=== PATIENT | female | born 1930 | race Caucasian/White ===

== ENCOUNTER 2017-09-27 02:45 | Emergency (ER) | payer MEDICARE ==
[2014-12-31 07:15] VITALS: BMI 25.8
[~2017-09-27 02:45] MED LIST: ACETAMINOPHEN500 M1 PO; ALDACTONE25 MG PO; BAYER CHEWABLE81 MG PO; BOUDREAUXS113 GM TP; CALCIUM 600+D T1 TA1 PO; COUMADIN2 MG PO; COUMADIN2.5 MG PO; DEXTROSE 50%/WA50 ML IV; DIOVAN160 MG PO; GLUCAGON1 MG/KIT IM; GLUCAGON1 MG/KIT SQ; GLUCOPHAGE1000 MG PO; HUMALOG 30100 UNITS/ SC; INSTA-GLUCOSE31 GM PO; JANUVIA100 MG PO; K-DUR20 MEQ PO; LANOXIN125 MCG PO; LASIX20 MG PO; LASIX40 MG PO; LEVAQUIN250 MG PO; LEVOTHROID100 MCG PO; MAGNESIUM OXID250 M1 PO; METOPROLOL TAR100 MG PO; MILK OF MAGNESI30 ML GT; NORCO 5/325 TAB1 TA1 PO; ONDANSETRON4 MG/2 M3 IV; OYSCO 500+D TAB1 TAB PO; PHENAZOPYRIDIN100 MG PO; PRAVACHOL40 MG PO; PROTONIX I40 MG/VIAL IV; PROTONIX40 MG PO; PROVENTIL/2.5 MG/3 M NEB; RESTORIL15 MG PO; TRICOR145 MG PO; TRILIPIX45 MG PO
== END 2017-09-27 04:08 | disposition home or self-care (01) ==
LOC: D.ER 02:45
DX: R04.0 Epistaxis (principal); I10 Essential (primary) hypertension; E11.9 Type 2 diabetes mellitus without complications

== ENCOUNTER 2019-04-19 07:20 | Inpatient (IN) | payer MEDICARE ==
[2019-04-19] VITALS (17 sets, daily range): BP systolic 116–153; BP diastolic 42–59; BMI 24.9
[2019-04-19 07:54] LABS: BASOPHILS 0.2 % (0-2); EOSINOPHILS 2.5 % (0-7); HEMATOCRIT 24.8 % (36.0-48.0); HEMOGLOBIN 7.9 g/dL (12-16); IMMATURE GRANULOCYTES 0.2 % (0-5); LYMPHOCYTES 8.7 % (15-50); MCH 29.8 pg (26.0-34.0); MCHC 31.9 g/dL (31.0-37.0); MCV 93.6 fL (80.0-100.0); MEAN PLATELET VOLUME 10.2 fL (7.4-10.4); MONOCYTES 6.8 % (2-11); NEUTROPHILS 81.6 % (40-80); RBC 2.65 10x6/uL (4.00-5.40); RDW 17.4 % (11.5-14.5); WBC 5.3 10x3/uL (4.8-10.8)
[2019-04-19] MEDS ORDERED: MICARDIS20 MG PO (07:56)
[2019-04-19 07:57] LABS: PLATELET COUNT 116 10x3/uL (130-400)
[2019-04-19] MEDS ORDERED: FERROUS SULFAT325 MG PO (07:57)
[2019-04-19 08:09] LABS: APTT 36.9 SECONDS (22.8-39.4); INR 2.4 (0.85-1.17); PROTIME 25.5 SECONDS (11.6-15.0)
[2019-04-19 08:16] LABS: ALBUMIN 3.8 g/dL (3.4-5.0); ALKALINE PHOSPHATASE 22 U/L (46-116); ALT (SGPT) 30 U/L (10-68); BILIRUBIN - TOTAL 0.61 mg/dL (0.2-1.3); CALC OSMOLALITY 286 mosm/kg (275-300); CALCIUM 8.4 mg/dL (8.5-10.1); CHLORIDE - SERUM 100 mmol/L (98-107); CREATININE - SERUM 1.4 mg/dL (0.6-1.3); POTASSIUM - SERUM 3.8 mmol/L (3.5-5.1); PROTEIN - SERUM 6.6 g/dL (6.4-8.2); SODIUM 138 mmol/L (136-145); UREA NITROGEN 30 mg/dL (7-18); eGFR NON AFRICAN AMERICAN 38 mL/min (90-120)
[2019-04-19 08:17] LABS: GLUCOSE 197 mg/dL (74-106)
[2019-04-19 08:28] LABS: CKMB 1.9 U/L (0.0-3.6); CREATINE KINASE 147 UL (21-215); PRO BNP 679 pg/mL (0-450); TROPONIN-I 0.041 ng/mL (0.000-0.060)
--- NOTE | 2019-04-19 14:34 | NUR ---
I have reviewed this patient and I concur with the Shift Assessment completed by the Licensed Practical Nurse today this shift.
--- NOTE | 2019-04-19 19:00 | NUR ---
ALERT AND ORIENTED. PATIENT WAS RECEIVING BLOOD BUT NS FLOWING AND FLUSHING LINE. DENIES PAIN OR DISCOMFORT. PT HAS PRODUCTIVE COUGH AND LUNGS PRESENT WITH EXPIRATORY WHEEZES AND CRACKLES AT BASES. SON AT BEDSIDE.
[2019-04-20] VITALS: BP 131/58
[2019-04-20 04:00] VITALS: BP 151/46
[2019-04-20 06:50] LABS: BASOPHILS 0.1 % (0-2); EOSINOPHILS 0 % (0-7); IMMATURE GRANULOCYTES 0.4 % (0-5); LYMPHOCYTES 4.5 % (15-50); MCH 30.8 pg (26.0-34.0); MCHC 32.8 g/dL (31.0-37.0); MCV 93.8 fL (80.0-100.0); MEAN PLATELET VOLUME 11.2 fL (7.4-10.4); MONOCYTES 6.3 % (2-11); NEUTROPHILS 88.7 % (40-80); PLATELET COUNT 111 10x3/uL (130-400)
[2019-04-20 06:59] LABS: HEMATOCRIT 30.5 % (36.0-48.0); RBC 3.25 10x6/uL (4.00-5.40); WBC 8.3 10x3/uL (4.8-10.8)
[2019-04-20 07:12] LABS: INR 2.26 (0.85-1.17); PROTIME 24.3 SECONDS (11.6-15.0)
[2019-04-20 08:32] LABS: ALBUMIN 3.8 g/dL (3.4-5.0); ANION GAP 14.6 mmol/L (8-16); BILIRUBIN - TOTAL 1.06 mg/dL (0.2-1.3); CALCIUM 8.4 mg/dL (8.5-10.1); CARBON DIOXIDE 26.9 mmol/L (21.0-32.0); CREATININE - SERUM 1.3 mg/dL (0.6-1.3); POTASSIUM - SERUM 3.5 mmol/L (3.5-5.1); PROTEIN - SERUM 6.6 g/dL (6.4-8.2)
[2019-04-20 09:25] VITALS: BP 126/73
--- NOTE | 2019-04-20 09:38 | NUR ---
PT IS HAVING COUGHING FITS AND IS COUGHING UP BLOOD PER PT AND SON. DID SEE RED SPUTUM IN TISSUE ON PT BEDSIDE. HAD PAGED DR VAZQUEZ EARLIER AND PT SON INSIST ON PAGING DR WEBER. WILL WAIT A BIT BEFORE PAGING AGAIN DUE TO SUNDAY AND POSSIBLY IN SERVICES
[2019-04-20 13:00] VITALS: BP 150/57
[2019-04-20 18:20] VITALS: BP 167/67
[2019-04-20 20:00] VITALS: BP 144/51
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
[2019-04-21] VITALS: BP 115/51
[2019-04-21 04:00] VITALS: BP 147/47
--- NOTE | 2019-04-21 04:50 | NUR ---
I have reviewed this patient and I concur with the Shift Assessment completed by the Licensed Practical Nurse today this shift.
[2019-04-21 07:05] LABS: BASOPHILS 0.1 % (0-2); EOSINOPHILS 0.4 % (0-7); HEMATOCRIT 29.3 % (36.0-48.0); HEMOGLOBIN 9.5 g/dL (12-16); IMMATURE GRANULOCYTES 0.3 % (0-5); LYMPHOCYTES 8.2 % (15-50); MCH 30.5 pg (26.0-34.0); MCHC 32.4 g/dL (31.0-37.0); MCV 94.2 fL (80.0-100.0); MEAN PLATELET VOLUME 10.8 fL (7.4-10.4); MONOCYTES 8.6 % (2-11); NEUTROPHILS 82.4 % (40-80); PLATELET COUNT 112 10x3/uL (130-400); RBC 3.11 10x6/uL (4.00-5.40); RDW 16.8 % (11.5-14.5); WBC 6.8 10x3/uL (4.8-10.8)
[2019-04-21 07:29] LABS: ANION GAP 8.8 mmol/L (8-16); CALCIUM 8.4 mg/dL (8.5-10.1); CARBON DIOXIDE 32.7 mmol/L (21.0-32.0); CREATININE - SERUM 1.2 mg/dL (0.6-1.3); POTASSIUM - SERUM 3.5 mmol/L (3.5-5.1)
[2019-04-21 07:44] LABS: INR 2.37 (0.85-1.17); PROTIME 25.2 SECONDS (11.6-15.0)
[2019-04-21 08:45] VITALS: BP 127/50
--- NOTE | 2019-04-21 09:26 | NUR ---
ALERT AND ORIENTED X 3. LUNGS WITH BILATERAL WHEEZES. PRODUCTIVE COUGH NOTED WITH YELLOW SPUTUM. HEART SOUNDS S1 AND S2 HEARD IN ALL SANZ. BOWEL SOUNDS ACTIVE X 4. DENIES PAIN. REQUESTS COUGH MEDICATION BUT NOT TIME YET. SCHEDULED MUCINEX GIVEN. BED LOW. FALL PRECAUTIONS IN PLACE. CALL MANUEL AND PERSONAL ITEMS IN REACH. SKIN INTACT WITHOUT REDNESS. WILL CONTINUE TO MONITOR.
--- NOTE | 2019-04-21 10:51 | NUR ---
RESTING IN BED. DENIES PAIN. DENIES NEEDS.
--- NOTE | 2019-04-21 11:29 | NUR ---
PATIENT HR 80. DIGOXIN GIVEN. BLOOD SUGAR 129. INSULIN HELD PER SS.
[2019-04-21 12:20] VITALS: BMI 24.9
[2019-04-21 13:02] VITALS: BP 120/69
--- NOTE | 2019-04-21 14:19 | NUR ---
STATES COUGHED UP SMALL AMOUNT OF BLOOD. EDUCATION PROVIDED TO SHOW NURSE IF HAPPENS AGAIN. WILL CONTINUE TO MONITOR.
--- NOTE | 2019-04-21 14:31 | NUR ---
STATES THINKS REDNESS IN SPUTUM WAS FROM JELLO FROM LUNCH NOT BLOOD. WILL CONTINUE TO MONITOR. PRN TESSALON PERLE GIVEN FOR COUGH.
--- NOTE | 2019-04-21 14:46 | NUR ---
OFFERERED SHOWER TO PATIENT. STATES "NOT UP TO IT RIGHT NOW." WILL CONTINUED TO MONITOR.
--- NOTE | 2019-04-21 16:13 | NUR ---
BLOOD SUGAR WNL. NO COVERAGE NEDED.
[2019-04-21 16:56] VITALS: BP 129/50
--- NOTE | 2019-04-21 17:29 | NUR ---
DINNER AT BEDSIDE. DENIES FURTHER NEEDS.
[2019-04-21 20:00] VITALS: BP 140/54
--- NOTE | 2019-04-21 21:00 | NUR ---
FSBS 109 NO INSULIN GIVEN AT THIS TIME PER SS.
[2019-04-22] VITALS: BP 115/53
--- NOTE | 2019-04-22 03:40 | NUR ---
I have reviewed this patient and I concur with the Shift Assessment completed by the Licensed Practical Nurse today this shift.
[2019-04-22 04:00] VITALS: BP 134/57; BP 134/68
--- NOTE | 2019-04-22 04:18 | NUR ---
PT RESTING IN BED. EYES CLOSED. NO SIGNS OF DISTRESS. BREATHING EVEN AND UNLABORED. CALL LIGHT IN REACH. BED LOWERED AND LOCKED. CLAUDIA ALARM ON. BED RAILS UP X2. WILL CONTINUE PLAN OF CARE.
[2019-04-22 05:24] LABS: BASOPHILS 0.2 % (0-2); EOSINOPHILS 2.8 % (0-7); HEMATOCRIT 31.9 % (36.0-48.0); HEMOGLOBIN 10.4 g/dL (12-16); IMMATURE GRANULOCYTES 0.2 % (0-5); LYMPHOCYTES 9.6 % (15-50); MCH 30.4 pg (26.0-34.0); MCHC 32.6 g/dL (31.0-37.0); MCV 93.3 fL (80.0-100.0); MEAN PLATELET VOLUME 11.1 fL (7.4-10.4); MONOCYTES 9.1 % (2-11); NEUTROPHILS 78.1 % (40-80); PLATELET COUNT 123 10x3/uL (130-400); RBC 3.42 10x6/uL (4.00-5.40); RDW 16.4 % (11.5-14.5); WBC 6.5 10x3/uL (4.8-10.8)
[2019-04-22 05:43] LABS: ANION GAP 11.7 mmol/L (8-16); CALCIUM 8.5 mg/dL (8.5-10.1); CARBON DIOXIDE 33.7 mmol/L (21.0-32.0); CREATININE - SERUM 1.4 mg/dL (0.6-1.3); POTASSIUM - SERUM 3.4 mmol/L (3.5-5.1)
--- NOTE | 2019-04-22 06:34 | NUR ---
FSBS 122 NO INSULIN GIVEN AT THIS TIME PER SS.
[2019-04-22 08:16] VITALS: BP 110/52
[2019-04-22] MEDS ORDERED: ZITHROMAX250 MG PO (12:37)
[2019-04-22] MEDS ORDERED: MUCINEX600 MG PO (12:38)
[2019-04-22 12:43] VITALS: BP 118/64
--- NOTE | 2019-04-22 14:43 | MORECARE ---
CASE MANAGEMENT DISCHARGE SUMMARY PATIENT: JOSH SHETH UNIT: [id number] ADM DATE: 04/20/19 AGE: 88 : 32 SEX: F ROOM/BED: D.2238 AUTHOR: ENMA QUIROZ PHYSICIAN: REFERRING PHYSICIAN: RASHAD VAZQUEZ MD DATE OF SERVICE: 04/22/19 Discharge Plan Patient Name: JOSH SHETH Facility: [facility]:[place] : 1930 Planned Disposition: Home Anticipated Discharge Date: 04/22/19 Discharge Date: Expected LOS: 2 Initial Reviewer: [email or web address] Initial Review Date: 04/22/2019 Generated: 04/22/19 3:43 pm Coverage Notice Reviewer: [email or web address] Brian Reed Notice Issued Date-Time: 04/20/2019 14:54 Notice Type: Medicare Outpatient Observation Notice Notice Delivered To: Patient Relationship to Patient: Self It Compliance Analyst Name: Delivery Method: HAND - Hand Delivered Chasidy Days: Prior Verbal Notification: Recipient Understood Notice: Yes Recipient Signature: Yes Med Rec Note Co-signed by Attending: Coverage Notice Comment: Patient Name: JOSH SHETH Page [id number] at 1443 All edits/amendments must be made on the electronic document DICTATION DATE: 04/22/19 144 CLOTH SHEARER: TING 04/22/19 1443 RPT#: [id number] DC DATE: STATUS: ADM IN [facility] [address] [place] [address] END OF REPORT
--- NOTE | 2019-04-22 14:53 | MORECARE ---
CASE MANAGEMENT DISCHARGE SUMMARY PATIENT: JOSH VALLE UNIT: [id number] ADM DATE: 04/20/19 AGE: 88 : 32 SEX: F ROOM/BED: D.2238 AUTHOR: GABRIELLA,DOC PHYSICIAN: REFERRING PHYSICIAN: RASHAD VAZQUEZ MD DATE OF SERVICE: 04/22/19 Discharge Plan Patient Name: JOSH VALLE Facility: [facility]:[place] : 1930 Planned Disposition: Home Anticipated Discharge Date: 04/22/19 Discharge Date: Expected LOS: 2 Initial Reviewer: [email or web address] Initial Review Date: 04/22/2019 Generated: 04/22/19 3:53 pm Comments DCP- Discharge Planning Updated by [email or web address]: Bailey Colbert on 04/22/19 1:[address] Patient Name: JOSH VALLE Admission Status: ER Accout number: [id number] Admission Date: 04-20-2019 : 1930 Admission Diagnosis: Attending: RASHAD VAZQUEZ Current LOS: 2 Anticipated DC Date: 04-22-2019 Planned Disposition: Home Primary Insurance: MEDICARE A & B Discharge Planning Comments: CM met with patient to complete initial dc planning assessment. CM educated patient on the CM role and verbal consent given by patient to complete assessment. Patient lives at home with her son (Anthony). She states her younger son, Rashad, will pick her up for discharge. At discharge patient plans to return and feels this is a safe discharge. CM discussed availability of home health, rehab services, and medical equipment. Patient denied known discharge needs at this time. Discharging home today, declines need for home health. CM will continue to follow and will assist as needed with dc plans/needs. Professor Of Special Education: Bailey Colbert DCPIA - Discharge Planning Initial Assessment Updated by [email or web address]: Bailey Colbert on 04/22/19 2:44 pm * Is the patient Alert and Oriented? Yes * How many steps to enter\exit or inside your home? 0/0 * PCP Dr. Anselmo Nuñez * Pharmacy [facility] * Preadmission Environment Home with Family * ADLs Partial Dependent * Partial ADLs (Assistance needed) Ambulation * Equipment Nebulizer Other Oxygen Wheelchair * Other Equipment Portable oxygen * List name and contact numbers for known caregivers / representatives who currently or will assist patient after discharge: Anthony Valle - [facility] - [phone] Vandana Haley - R - [phone] * Verbal permission to speak to the caregivers and representatives has been obtained from the patient. Yes * Community resources currently utilized None * Please name any agencies selected above. [facility] [place] for oxygen and nebulizer supplies * Additional services required to return to the preadmission environment? No * Can the patient safely return to the preadmission environment? Yes * Has this patient been hospitalized within the prior 30 days at any hospital? No Coverage Notice Reviewer: [email or web address] Brian Reed Notice Issued Date-Time: 04/20/2019 14:54 Notice Type: Medicare Outpatient Observation Notice Notice Delivered To: Patient Relationship to Patient: Self Label Coder Name: Delivery Method: HAND - Hand Delivered Chasidy Days: Prior Verbal Notification: Recipient Understood Notice: Yes Recipient Signature: Yes Med Rec Note Co-signed by Attending: Coverage Notice Comment: Last DP export: 04/22/19 1:43 p Patient Name: JOSH VALLE Page [id number] at 1453 All edits/amendments must be made on the electronic document DICTATION DATE: 04/22/191451 CORRUGATOR OPERATOR HELPER: TING 04/22/191451 RPT#: [id number] DC DATE: STATUS: ADM IN [facility] [address] [place] [address] END OF REPORT
--- NOTE | 2019-04-22 15:36 | NUR ---
DISCHARGE PAPERWORK SIGNED, ALL QUESTIONS ANSWERED. IV TO LEFT AC DC'D, TIP INTACT. PT ESCORTED OUT BY WHEELCHAIR.
--- NOTE | 2019-04-23 16:23 | MORECARE ---
CASE MANAGEMENT DISCHARGE SUMMARY PATIENT: JOSH VALLE UNIT: [id number] ADM DATE: 04/20/19 AGE: 88 : 32 SEX: F ROOM/BED: D.2238 AUTHOR: GABRIELLA,DOC PHYSICIAN: REFERRING PHYSICIAN: RASHAD VAZQUEZ MD DATE OF SERVICE: 04/23/19 Discharge Plan Patient Name: JOSH VALLE Facility: [facility]:[place] : 1930 Planned Disposition: Home Anticipated Discharge Date: 04/22/19 Discharge Date: 04/22/2019 Expected LOS: 2 Initial Reviewer: [email or web address] Initial Review Date: 04/22/2019 Generated: 04/23/19 5:23 pm Comments DCP- Discharge Planning Updated by [email or web address]: Bailey Colbert on 04/22/19 1:[address] Patient Name: JOSH VALLE Admission Status: ER Accout number: [id number] Admission Date: 04-20-2019 : 1930 Admission Diagnosis: Attending: RASHAD VAZQUEZ Current LOS: 2 Anticipated DC Date: 04-22-2019 Planned Disposition: Home Primary Insurance: MEDICARE A & B Discharge Planning Comments: CM met with patient to complete initial dc planning assessment. CM educated patient on the CM role and verbal consent given by patient to complete assessment. Patient lives at home with her son (Anthony). She states her younger son, Rashad, will pick her up for discharge. At discharge patient plans to return and feels this is a safe discharge. CM discussed availability of home health, rehab services, and medical equipment. Patient denied known discharge needs at this time. Discharging home today, declines need for home health. CM will continue to follow and will assist as needed with dc plans/needs. Acetylene Torch Solderer: Bailey Colbert DCPIA - Discharge Planning Initial Assessment Updated by [email or web address]: Bailey Colbert on 04/22/19 2:44 pm * Is the patient Alert and Oriented? Yes * How many steps to enter\exit or inside your home? 0/0 * PCP Dr. Anselmo Nuñez * Pharmacy [facility] * Preadmission Environment Home with Family * ADLs Partial Dependent * Partial ADLs (Assistance needed) Ambulation * Equipment Nebulizer Other Oxygen Wheelchair * Other Equipment Portable oxygen * List name and contact numbers for known caregivers / representatives who currently or will assist patient after discharge: Anthony Valle - [facility] - [phone] Vandana Haley - R - [phone] * Verbal permission to speak to the caregivers and representatives has been obtained from the patient. Yes * Community resources currently utilized None * Please name any agencies selected above. [facility] for oxygen and nebulizer supplies * Additional services required to return to the preadmission environment? No * Can the patient safely return to the preadmission environment? Yes * Has this patient been hospitalized within the prior 30 days at any hospital? No Coverage Notice Reviewer: [id number] Brian Reed Notice Issued Date-Time: 04/20/2019 14:54 Notice Type: Medicare Outpatient Observation Notice Notice Delivered To: Patient Relationship to Patient: Self Material Movers Name: Delivery Method: HAND - Hand Delivered Chasidy Days: Prior Verbal Notification: Recipient Understood Notice: Yes Recipient Signature: Yes Med Rec Note Co-signed by Attending: Coverage Notice Comment: Last DP export: 04/22/19 1:53 p Patient Name: JOSH VALLE Page [id number] at 1623 All edits/amendments must be made on the electronic document DICTATION DATE: 04/23/191622 COMMUNICATIONS FIELD TECHNICIAN: TING 04/23/191622 RPT#: [id number] DC DATE:04/22/19 STATUS: DIS IN [facility] [address] [place] [address] END OF REPORT
== END 2019-04-22 15:37 | disposition home or self-care (01) | DRG 202 ==
LOC: D.ER 07:20 → D.MS 09:10 → OBSVTIME 09:10 → D.MS 04-20 15:08
PROVIDERS: Family Medicine; ADMIT Family Medicine; ATTEND Family Medicine
DX: J40 Bronchitis, not specified as acute or chronic (principal); D58.9 Hereditary hemolytic anemia, unspecified; J44.9 Chronic obstructive pulmonary disease, unspecified; I50.9 Heart failure, unspecified; E11.9 Type 2 diabetes mellitus without complications; Z95.0 Presence of cardiac pacemaker; Z86.73 Personal history of transient ischemic attack (TIA), and cerebral infarction without residual deficits; F32.9 Major depressive disorder, single episode, unspecified; E87.6 Hypokalemia

== ENCOUNTER 2019-05-09 09:49 | Outpatient (CLI) | payer MEDICARE ==
[~2019-05-09] VITALS: Ht 162.6 cm; Wt 64.1 kg
[~2019-05-09 09:49] MED LIST changes: +FERROUS SULFAT325 MG PO; +MICARDIS20 MG PO; +MUCINEX600 MG PO; +ZITHROMAX250 MG PO
[2019-05-09 11:12] VITALS: Ht 162.6 cm; Wt 64.1 kg
--- NOTE | 2019-05-09 14:16 | NUR ---
SECOND UNIT PRBC'S TRANSFUSING TO LEFT WRIST PIV, PATIENT DENIES ANY UNTOWARD SIGNS OR SYMPTOMS. PATIENT AWAKE, ALERT, WATCHING TV, DAUGHTER IN ROOM
== END 2019-05-09 16:18 | disposition home or self-care (01) ==
LOC: D.OPS 09:49
PROVIDERS: ATTEND Internal Medicine Hematology & Oncology
DX: D64.9 Anemia, unspecified (principal); D50.8 Other iron deficiency anemias

== ENCOUNTER 2019-05-28 12:26 | Outpatient (CLI) | payer MEDICARE ==
[~2019-05-28] VITALS: Ht 162.6 cm; Wt 65.9 kg
--- NOTE | 2019-05-28 14:29 | NUR ---
PRE PROCEDURE MEDS ADMINISTERED PER ORDERS.
--- NOTE | 2019-05-28 14:35 | NUR ---
UNIT #1 PRBC'S INITIATED VIA LEFT AC PIV.
[2019-05-28 14:49] VITALS: BP 130/67; Ht 162.6 cm; Wt 65.9 kg
--- NOTE | 2019-05-28 16:20 | NUR ---
UNIT #1 PRBC'S COMPLETED.
--- NOTE | 2019-05-28 16:30 | NUR ---
LASIX 20MG IV ADMINISTERED PER ORDERS.
--- NOTE | 2019-05-28 16:45 | NUR ---
UNIT #2 PRBC'S INTIATED PER RIGHT AC PIV.
== END 2019-05-28 18:39 | disposition home or self-care (01) ==
LOC: D.OPS 12:26
PROVIDERS: ATTEND Internal Medicine Hematology & Oncology
DX: D64.9 Anemia, unspecified (principal)

== ENCOUNTER → 2019-06-20 10:42 | Outpatient (CLI) | payer MEDICARE ==
[2019-05-28 14:49] VITALS: BMI 24.9
== END | disposition home or self-care (01) ==
LOC: D.HCCARDIO 06-16 10:30
PROVIDERS: ATTEND Internal Medicine Cardiovascular Disease
DX: I25.10 Atherosclerotic heart disease of native coronary artery without angina pectoris (principal)